=== PATIENT | male | born 1985 | race Two or more races ===

== ENCOUNTER 2022-12-12 00:49 | Emergency (ER) | payer MEDICAID, OTHER ==
[~2022-12-12] VITALS: Ht 188 cm; Wt 143.0 kg
[2022-12-12 01:03] VITALS: BP 143/73
[2022-12-12] MEDS ORDERED: IBUPROFEN 800 MG TAB PO ONE (01:45)
[2022-12-12] MEDS ORDERED: NEOMYCIN-BACITRACIN-POLYM UNITDOSE PKG TOP OINT TOP ONE (01:45)
[2022-12-12] MEDS ORDERED: cefTRIAXone SOD 1,000 MG VL IM ONE (01:45)
[2022-12-12] MEDS ORDERED: CLIN300C70 PO (01:46)
[2022-12-12] MEDS ORDERED: IBU600T PO (01:46)
[2022-12-12] MEDS ORDERED: MUPI2OIN2 EX (01:46)
== END 2022-12-12 02:36 | disposition home or self-care (01) ==
LOC: ER 00:53
DX: S60.562A Insect bite (nonvenomous) of left hand, initial encounter (principal); L03.012 Cellulitis of left finger; W57.XXXA Bitten or stung by nonvenomous insect and other nonvenomous arthropods, initial encounter; Y93.89 Activity, other specified; Y92.89 Other specified places as the place of occurrence of the external cause; Y99.8 Other external cause status
CPT/HCPCS: 96372; 99283; J0696

== ENCOUNTER → 2023-07-28 | Emergency (ER) | payer MEDICAID ==
[~2023-07-28] VITALS: Ht 188 cm; Wt 150.8 kg
[~2023-07-28] MED LIST: CLIN300C70 PO; IBU600T PO; MUPI2OIN2 EX
[2023-07-28 00:33] VITALS: BP 121/73; PULSE 89; RESP 15; O2SAT 97
== END | disposition left against medical advice (07) ==
LOC: ER 00:07
DX: M25.511 Pain in right shoulder (principal); Z53.21 Procedure and treatment not carried out due to patient leaving prior to being seen by health care provider; V49.9XXA Car occupant (driver) (passenger) injured in unspecified traffic accident, initial encounter; Y93.89 Activity, other specified; Y92.410 Unspecified street and highway as the place of occurrence of the external cause; Y99.8 Other external cause status
CPT/HCPCS: 73030

== ENCOUNTER 2024-03-21 22:21 | Emergency (ER) | payer MEDICAID ==
[~2024-03-21] VITALS: Ht 188 cm; Wt 135.9 kg
[~2024-03-21 22:21] MED LIST changes: +CLIN1CAP70 PO; -CLIN300C70 PO
[2024-03-21 22:31] VITALS: PULSE 90; RESP 16; TEMP 98.4; O2SAT 97
[2024-03-22] MEDS ORDERED: GABA-1250 PO (00:24)
[2024-03-22] MEDS ORDERED: NAP500T PO (00:24)
[2024-03-22 00:31] VITALS: BP 112/78
[2024-03-22] MEDS: KETOROLAC TROMETH 60MG/2ML VIAL IM ONE (00:33)
== END 2024-03-22 00:29 | disposition home or self-care (01) ==
LOC: ER 22:21
DX: S52.501A Unspecified fracture of the lower end of right radius, initial encounter for closed fracture (principal); E11.9 Type 2 diabetes mellitus without complications; M79.2 Neuralgia and neuritis, unspecified; Z79.899 Other long term (current) drug therapy; X58.XXXA Exposure to other specified factors, initial encounter; Y93.89 Activity, other specified; Y92.512 Supermarket, store or market as the place of occurrence of the external cause; Y99.8 Other external cause status
CPT/HCPCS: 29130; 73130; 96372; 99283; J1885; 29125